=== PATIENT | female | born 2000 | race African-American/Black ===

== ENCOUNTER 2019-11-07 11:37 | Emergency (ER) | payer OTHER, SELFPAY ==
[2019-11-07 11:43] VITALS: BP 147/67; PULSE 106; RESP 18; TEMP 36.7; O2SAT 100
--- NOTE | 2019-11-07 12:30 | ED.WOUNDLAC ---
HPI - Wound/Laceration General Chief Complaint: Wound/Laceration <Luisa Whitten PA-C - Last Filed: 11/07/19 13:47> Stated Complaint: WOUND CHECK <Luisa Whitten PA-C - Last Filed: 11/07/19 13:47> Time Seen by Provider: 11/07/19 11:45 <Luisa Whitten PA-C - Last Filed: 11/07/19 13:47> Source: patient <Luisa Whitten PA-C - Last Filed: 11/07/19 13:47> Mode of arrival: ambulatory <Luisa Whitten PA-C - Last Filed: 11/07/19 13:47> Limitations: no limitations <Luisa Whitten PA-C - Last Filed: 11/07/19 13:47> History of Present Illness HPI narrative: This is a 19 year old female that presents to the ER for suture removal. Reports she had stitches placed at [place] 10 days ago. Reports she cut her arm on glass. Reports she still has some pain to the area and some swelling. Denies fever, redness or abnormal drainage. <Luisa Whitten PA-C - Last Filed: 11/07/19 13:47> Related Data Allergies/Adverse Reactions: Allergies Allergy/AdvReac Type Severity Reaction Status Date / Time No Known Allergies Allergy Verified 11/07/19 11:47 <Luisa Whitten PA-C - Last Filed: 11/07/19 13:47> Review of Systems Review of Systems: Narrative: CONSTITUTIONAL: Denies fever SKIN: Reports swelling. Denies drainage <Luisa Whitten PA-C - Last Filed: 11/07/19 13:47> All systems reviewed & are unremarkable except as noted in HPI and below <Luisa Whitten PA-C - Last Filed: 11/07/19 13:47> [facility] Past Medical History Medical History: Medical History (Updated 11/07/19 @ 13:29 by Luisa Whitten PA-C) No active medical problems <Luisa Whitten PA-C - Last Filed: 11/07/19 13:47> Social History Social History: Social History (Updated 11/07/19 @ 12:32 by Luisa Whitten PA-C) Smoking status: Never smoker <Luisa Whitten PA-C - Last Filed: 11/07/19 13:47> Exam Narrative: Exam Narrative: GENERAL: Well-appearing, well-nourished, and in no acute distress. HEAD: Normocephalic, atraumatic. EYES: EOMI. EXTREMITIES: Normal range of motion. Laceration to the right forearm with mild swelling, without erythema or drainage SKIN: Warm, dry, no rash. NEURO: No focal deficits. Alert and oriented x3. PSYCH: Normal mood and affect <Luisa Whitten PA-C - Last Filed: 11/07/19 13:47> Course Vital Signs Vital signs: Vital Signs Temperature 98.1 F 11/07/19 11:43 Pulse Rate 106 H 11/07/19 11:43 Respiratory Rate 18 11/07/19 11:43 Blood Pressure 147/67 H 11/07/19 11:43 Pulse Oximetry 100 11/07/19 11:43 Temperature 98.1 F 11/07/19 11:43 Pulse Rate 106 H 11/07/19 11:43 Respiratory Rate 18 11/07/19 11:43 Blood Pressure 147/67 H 11/07/19 11:43 Pulse Oximetry 100 11/07/19 11:43 <Luisa Whitten PA-C - Last Filed: 11/07/19 13:47> Vital Signs Temperature 98.1 F 11/07/19 11:43 Pulse Rate 106 H 11/07/19 11:43 Respiratory Rate 18 11/07/19 11:43 Blood Pressure 147/67 H 11/07/19 11:43 Pulse Oximetry 100 11/07/19 11:43 Temperature 98.1 F 11/07/19 11:43 Pulse Rate 106 H 11/07/19 11:43 Respiratory Rate 18 11/07/19 11:43 Blood Pressure 147/67 H 11/07/19 11:43 Pulse Oximetry 100 11/07/19 11:43 <Constanza Carroll MD - Last Filed: 11/07/19 19:39> MDM - Wound/Laceration MDM Narrative Medical decision making narrative: Patient presents to the emergency department for suture removal. No obvious signs of infection on exam. She does report some tenderness to the area. Attempted multiple times, patient will not let me remove her sutures. I will give her primary care doctor to follow-up for this. I will also start her on a couple of days of an antibiotic just to prevent any infection. She is to follow-up with primary care doctor. She is given warnings to return to the ER <Luisa Whitten PA-C - Last Filed: 11/07/19 13:47> Critical Care Time Critical Care Time Critical Care Time: No <
== END 2019-11-07 13:41 | disposition home or self-care (01) ==
PROVIDERS: Emergency Provider Emergency Medicine
DX: S51.811D Laceration without foreign body of right forearm, subsequent encounter (principal); W25.XXXD Contact with sharp glass, subsequent encounter
CPT/HCPCS: 99283

== ENCOUNTER 2022-12-09 17:15 | Emergency (ER) | payer SELFPAY | END 2022-12-09 17:58 | disposition left against medical advice (07) | LOC: ANHED 21:55 | DX: R51.9 Headache, unspecified (principal) | CPT/HCPCS: 99199 ==